=== PATIENT | female | born 1955 | race Caucasian/White ===

== ENCOUNTER 2018-11-26 12:45 | Emergency (ER) | payer MEDICAID ==
[~2018-11-26] VITALS: Ht 162.6 cm; Wt 80.5 kg
[2018-11-26 12:54] VITALS: Ht 162.6 cm; Wt 80.5 kg
[2018-11-26] MEDS ORDERED: MACROBID100 MG PO ×2 (12:57→16:28)
[2018-11-26] MEDS ORDERED: COUMADIN5 MG PO (12:58)
[2018-11-26] MEDS ORDERED: COUMADIN6 MG PO (12:58)
[2018-11-26 13:29] LABS: BASOPHILS 0.1 % (0-2); EOSINOPHILS 0.4 % (0-7); HEMATOCRIT 37.6 % (36.0-48.0); HEMOGLOBIN 13.4 g/dL (12-16); IMMATURE GRANULOCYTES 0.2 % (0-5); MCH 30.3 pg (26.0-34.0); MCHC 35.6 g/dL (31.0-37.0); MCV 85.1 fL (80.0-100.0); MEAN PLATELET VOLUME 9.8 fL (7.4-10.4); MONOCYTES 6.7 % (2-11); NEUTROPHILS 83.6 % (40-80); PLATELET COUNT 216 10x3/uL (130-400); RBC 4.42 10x6/uL (4.00-5.40); RDW 14.2 % (11.5-14.5); WBC 9.3 10x3/uL (4.8-10.8)
[2018-11-26 13:36] LABS: APPEARANCE CLEAR (CLEAR); BILIRUBIN NEGATIVE (NEGATIVE); COLOR YELLOW (YELLOW); GLUCOSE NEGATIVE (NEGATIVE); KETONE NEGATIVE (NEGATIVE); NITRITE NEGATIVE (NEGATIVE); PROTEIN NEGATIVE (NEGATIVE); SPECIFIC GRAVITY 1.005 (1.005-1.020); UROBILINOGEN NORMAL (NORMAL)
[2018-11-26 13:40] LABS: ALBUMIN 3.6 g/dL (3.4-5.0); ALKALINE PHOSPHATASE 124 U/L (46-116); ALT (SGPT) 19 U/L (10-68); BILIRUBIN - TOTAL 1.06 mg/dL (0.2-1.3); CALC OSMOLALITY 277 mosm/kg (275-300); CALCIUM 8.8 mg/dL (8.5-10.1); CARBON DIOXIDE 25.7 mmol/L (21.0-32.0); CHLORIDE - SERUM 103 mmol/L (98-107); CREATININE - SERUM 0.7 mg/dL (0.6-1.3); GLUCOSE 115 mg/dL (74-106); PROTEIN - SERUM 7.1 g/dL (6.4-8.2); SODIUM 139 mmol/L (136-145); UREA NITROGEN 10 mg/dL (7-18); eGFR NON AFRICAN AMERICAN 90 mL/min (90-120)
[2018-11-26 13:44] LABS: BACTERIA MODERATE /hpf (NONE SEEN); EPITHELIAL CELLS OCC /hpf (0-5); RED CELLS - URINE 0-5 /hpf (0-5); WHITE CELLS - URINE 0-5 /hpf (0-5)
[2018-11-26 13:45] LABS: GRANULAR CAST RARE /lpf (NONE SEEN); HYALINE CAST RARE /lpf (NONE SEEN)
[2018-11-26] MEDS ORDERED: KEFLEX500 MG PO (16:28)
[2018-11-26] MEDS ORDERED: CYCLOBENZAPRINE10 MG PO (16:28)
[2018-11-26] MEDS ORDERED: ACETAMINOPHEN500 M1 PO (16:28)
[2018-11-26] MEDS ORDERED: IBUPROFEN800 MG PO (16:28)
[2018-11-26 16:46] VITALS: BP 144/83
[2018-12-01 19:40] VITALS: Ht 162.6 cm; Wt 80.5 kg
== END 2018-11-26 16:47 | disposition home or self-care (01) ==
LOC: D.ER 12:45
PROVIDERS: Family Medicine
DX: R31.9 Hematuria, unspecified (principal); R82.71 Bacteriuria; N28.1 Cyst of kidney, acquired; N23 Unspecified renal colic

== ENCOUNTER 2018-11-28 12:23 | Inpatient (IN) | payer MEDICAID ==
[~2018-11-28] VITALS: Ht 162.6 cm; Wt 80.3 kg
[~2018-11-28 12:23] MED LIST: ACETAMINOPHEN500 M1 PO; COUMADIN5 MG PO; COUMADIN6 MG PO; CYCLOBENZAPRINE10 MG PO; IBUPROFEN800 MG PO; KEFLEX500 MG PO; MACROBID100 MG PO
[2018-11-28 14:26] LABS: APPEARANCE CLEAR (CLEAR); BACTERIA MODERATE /hpf (NONE SEEN); BILIRUBIN NEGATIVE (NEGATIVE); COLOR YELLOW (YELLOW); EPITHELIAL CELLS 0-5 /hpf (0-5); GLUCOSE NEGATIVE (NEGATIVE); KETONE NEGATIVE (NEGATIVE); MUCUS <1+ /lpf (NONE SEEN); NITRITE NEGATIVE (NEGATIVE); PROTEIN NEGATIVE (NEGATIVE); SPECIFIC GRAVITY 1.015 (1.005-1.020); UROBILINOGEN NORMAL (NORMAL); WHITE CELLS - URINE RARE /hpf (0-5)
[2018-11-28 16:59] LABS: BASOPHILS 0.1 % (0-2); EOSINOPHILS 0.7 % (0-7); HEMATOCRIT 33.1 % (36.0-48.0); HEMOGLOBIN 11.8 g/dL (12-16); IMMATURE GRANULOCYTES 0.4 % (0-5); LYMPHOCYTES 14.1 % (15-50); MCHC 35.6 g/dL (31.0-37.0); MCV 84.2 fL (80.0-100.0); MEAN PLATELET VOLUME 9.6 fL (7.4-10.4); MONOCYTES 3.6 % (2-11); NEUTROPHILS 81.1 % (40-80); PLATELET COUNT 178 10x3/uL (130-400); RBC 3.93 10x6/uL (4.00-5.40); RDW 14.4 % (11.5-14.5); WBC 8.4 10x3/uL (4.8-10.8)
[2018-11-28 17:15] LABS: ALKALINE PHOSPHATASE 117 U/L (46-116); ALT (SGPT) 37 U/L (10-68); BILIRUBIN - TOTAL 0.84 mg/dL (0.2-1.3); CALC OSMOLALITY 277 mosm/kg (275-300); CARBON DIOXIDE 28.7 mmol/L (21.0-32.0); CHLORIDE - SERUM 105 mmol/L (98-107); CREATININE - SERUM 0.6 mg/dL (0.6-1.3); GLUCOSE 95 mg/dL (74-106); POTASSIUM - SERUM 3.6 mmol/L (3.5-5.1); SODIUM 140 mmol/L (136-145); UREA NITROGEN 9 mg/dL (7-18); eGFR NON AFRICAN AMERICAN > 90 mL/min (90-120)
[2018-11-28 19:30] VITALS: BP 109/64
[2018-11-28 20:00] VITALS: BP 108/63
[2018-11-28 20:30] VITALS: BP 108/63
[2018-11-28 21:00] VITALS: BP 108/63
[2018-11-29 03:03] VITALS: BP 120/67
[2018-11-29 04:53] LABS: BASOPHILS 0.1 % (0-2); EOSINOPHILS 0.8 % (0-7); HEMATOCRIT 35.2 % (36.0-48.0); HEMOGLOBIN 12.3 g/dL (12-16); IMMATURE GRANULOCYTES 0.2 % (0-5); LYMPHOCYTES 12.2 % (15-50); MCH 29.8 pg (26.0-34.0); MCHC 34.9 g/dL (31.0-37.0); MCV 85.2 fL (80.0-100.0); MEAN PLATELET VOLUME 10.1 fL (7.4-10.4); MONOCYTES 5.8 % (2-11); NEUTROPHILS 80.9 % (40-80); RBC 4.13 10x6/uL (4.00-5.40); RDW 14.4 % (11.5-14.5); WBC 8.6 10x3/uL (4.8-10.8)
[2018-11-29 05:04] LABS: PLATELET COUNT 215 10x3/uL (130-400)
[2018-11-29 05:23] LABS: ALBUMIN 3.1 g/dL (3.4-5.0); ALKALINE PHOSPHATASE 149 U/L (46-116); BILIRUBIN - TOTAL 0.99 mg/dL (0.2-1.3); CALC OSMOLALITY 274 mosm/kg (275-300); CALCIUM 8.1 mg/dL (8.5-10.1); CARBON DIOXIDE 27.3 mmol/L (21.0-32.0); CHLORIDE - SERUM 103 mmol/L (98-107); CREATININE - SERUM 0.7 mg/dL (0.6-1.3); GLUCOSE 101 mg/dL (74-106); POTASSIUM - SERUM 3.7 mmol/L (3.5-5.1); PROTEIN - SERUM 6.4 g/dL (6.4-8.2); SODIUM 138 mmol/L (136-145); UREA NITROGEN 9 mg/dL (7-18); eGFR NON AFRICAN AMERICAN 90 mL/min (90-120)
[2018-11-29 05:24] LABS: ALT (SGPT) 60 U/L (10-68)
[2018-11-29 06:29] VITALS: BP 104/78
[2018-11-29 07:26] LABS: AMYLASE - SERUM 33 U/L (25-115); LIPASE 86 U/L (73-393)
[2018-11-29 07:39] LABS: % SATURATION 11 % (15-55); IRON 29 ug/dl (35-150); TOTAL IRON BIND CAPACITY 258 ug/dl (260-445); UNSAT IRON BIND CAPACITY 229 ug/dl (150-375)
[2018-11-29 07:48] LABS: INR 3.19 (0.85-1.17); PROTIME 31.9 SECONDS (11.6-15.0)
[2018-11-29 08:34] VITALS: BP 116/66
[2018-11-29 15:39] VITALS: BMI 30.4
[2018-11-29 20:14] VITALS: BP 132/72
[2018-11-30] VITALS: BP 138/66
[2018-11-30 04:00] VITALS: BP 143/70
[2018-11-30 07:20] LABS: BASOPHILS 0.2 % (0-2); EOSINOPHILS 1.4 % (0-7); HEMOGLOBIN 11.7 g/dL (12-16); IMMATURE GRANULOCYTES 0.3 % (0-5); LYMPHOCYTES 16.7 % (15-50); MCH 29.9 pg (26.0-34.0); MCHC 35.5 g/dL (31.0-37.0); MCV 84.4 fL (80.0-100.0); MEAN PLATELET VOLUME 9.9 fL (7.4-10.4); MONOCYTES 7.8 % (2-11); NEUTROPHILS 73.6 % (40-80); PLATELET COUNT 194 10x3/uL (130-400); RBC 3.91 10x6/uL (4.00-5.40)
[2018-11-30 07:23] LABS: WBC 6.3 10x3/uL (4.8-10.8)
[2018-11-30 07:47] LABS: ALBUMIN 2.9 g/dL (3.4-5.0); ALKALINE PHOSPHATASE 133 U/L (46-116); BILIRUBIN - TOTAL 0.84 mg/dL (0.2-1.3); CALC OSMOLALITY 275 mosm/kg (275-300); CALCIUM 8.2 mg/dL (8.5-10.1); CARBON DIOXIDE 26.8 mmol/L (21.0-32.0); CHLORIDE - SERUM 103 mmol/L (98-107); CREATININE - SERUM 0.7 mg/dL (0.6-1.3); GLUCOSE 93 mg/dL (74-106); POTASSIUM - SERUM 3.5 mmol/L (3.5-5.1); PROTEIN - SERUM 6.2 g/dL (6.4-8.2); SODIUM 139 mmol/L (136-145); UREA NITROGEN 7 mg/dL (7-18); eGFR NON AFRICAN AMERICAN 90 mL/min (90-120)
[2018-11-30 07:48] LABS: ALT (SGPT) 42 U/L (10-68)
[2018-11-30 09:03] VITALS: BMI 30.4
[2018-11-30 09:19] LABS: FOLATE (FOLIC ACID) - SERUM 9.3 ng/mL (>3.0)
[2018-11-30 11:05] VITALS: BP 120/75
[2018-11-30 14:11] VITALS: BP 133/67
[2018-11-30 17:20] VITALS: BP 119/68
[2018-11-30 20:00] VITALS: BP 136/66
[2018-12-01] VITALS: BP 115/61
[2018-12-01 04:00] VITALS: BP 127/63
[2018-12-01 06:35] LABS: BASOPHILS 0.2 % (0-2); EOSINOPHILS 1.7 % (0-7); HEMOGLOBIN 11.8 g/dL (12-16); IMMATURE GRANULOCYTES 0.3 % (0-5); LYMPHOCYTES 17.1 % (15-50); MCH 29.6 pg (26.0-34.0); MCHC 35.8 g/dL (31.0-37.0); MCV 82.7 fL (80.0-100.0); NEUTROPHILS 72.7 % (40-80); PLATELET COUNT 216 10x3/uL (130-400); RBC 3.99 10x6/uL (4.00-5.40); RDW 13.9 % (11.5-14.5); WBC 5.8 10x3/uL (4.8-10.8)
[2018-12-01 06:44] LABS: INR 3.33 (0.85-1.17)
[2018-12-01 06:56] LABS: ALBUMIN 2.9 g/dL (3.4-5.0); ALKALINE PHOSPHATASE 118 U/L (46-116); ALT (SGPT) 30 U/L (10-68); BILIRUBIN - TOTAL 0.62 mg/dL (0.2-1.3); CALC OSMOLALITY 276 mosm/kg (275-300); CALCIUM 8.2 mg/dL (8.5-10.1); CHLORIDE - SERUM 107 mmol/L (98-107); CREATININE - SERUM 0.6 mg/dL (0.6-1.3); GLUCOSE 101 mg/dL (74-106); POTASSIUM - SERUM 3.7 mmol/L (3.5-5.1); PROTEIN - SERUM 6.1 g/dL (6.4-8.2); SODIUM 140 mmol/L (136-145); UREA NITROGEN 6 mg/dL (7-18); eGFR NON AFRICAN AMERICAN > 90 mL/min (90-120)
[2018-12-01 08:23] VITALS: BP 140/75
--- NOTE | 2018-12-01 10:33 | MORECARE ---
CASE MANAGEMENT DISCHARGE SUMMARY PATIENT: MOMO CACERES UNIT: [id number] ADM DATE: 11/30/18 AGE: 63 : 59 SEX: F ROOM/BED: D.1208 AUTHOR: KEN GUPTA PHYSICIAN: REFERRING PHYSICIAN: RAINER SEGURA MD DATE OF SERVICE: 12/01/18 Discharge Plan Patient Name: MOMO CACERES Facility: [facility]:[place] : 1955 Planned Disposition: Home Anticipated Discharge Date: Discharge Date: Expected LOS: Initial Reviewer: [email or web address] Initial Review Date: 12/01/2018 Generated: 12/01/18 11:33 am Comments DCP- Discharge Planning Updated by [email or web address]: Sushma Laws on 12/01/18 9:[address] Patient Name: MOMO CACERES Admission Status: ER Accout number: [id number] Admission Date: 11-30-2018 : 1955 Admission Diagnosis: Attending: RAINER SEGURA Current LOS: 1 Anticipated DC Date: Planned Disposition: Home [place]: [place] [employer] [place] Discharge Planning Comments: CM MET WITH PATIENT ABOUT DC PLANNING/NEEDS. DENIES ANY NEEDS. WANTS TO GO HOME TODAY. STATES HER COUSIN WILL BE HERE AROUND 11 OR 12 AND CAN TAKE HER HOME. CM WILL FOLLOW AND ASSIST NEEDED WITH DC PLANNING/NEEDS. Lead Embedded Software Engineer: Sushma Laws DCPIA - Discharge Planning Initial Assessment Updated by [email or web address]: Sushma Laws on 12/01/18 10:24 am * Is the patient Alert and Oriented? Yes * PCP SUSHMA COLINDRES * [facility] * Preadmission Environment Home Alone * ADLs Independent * Community resources currently utilized None * Additional services required to return to the preadmission environment? No * Can the patient safely return to the preadmission environment? Yes * Has this patient been hospitalized within the prior 30 days at any hospital? No Patient Name: MOMO CACERES Page [id number] at 1033 All edits/amendments must be made on the electronic document DICTATION DATE: 12/01/18 1033 ROVER TENDER: SELENA 12/01/18 1033 RPT#: [id number] DC DATE: STATUS: ADM IN [facility] [address] [place] [address] END OF REPORT
[2018-12-01 13:08] VITALS: BP 146/77
[2018-12-01] MEDS ORDERED: FLAGYL500 MG PO (19:03)
[2018-12-01 19:40] VITALS: Ht 162.6 cm; Wt 80.3 kg
--- NOTE | 2018-12-02 08:48 | MORECARE ---
CASE MANAGEMENT DISCHARGE SUMMARY PATIENT: MOMO CACERES UNIT: [id number] ADM DATE: 11/30/18 AGE: 63 : 59 SEX: F ROOM/BED: D.1208 AUTHOR: KEN GUPTA PHYSICIAN: REFERRING PHYSICIAN: RAINER SEGURA MD DATE OF SERVICE: 12/02/18 Discharge Plan Patient Name: MOMO CACERES Facility: [facility]:[place] : 1955 Planned Disposition: Home Anticipated Discharge Date: Discharge Date: 12/01/2018 Expected LOS: Initial Reviewer: [email or web address] Initial Review Date: 12/01/2018 Generated: 12/02/18 9:48 am Comments DCP- Discharge Planning Updated by [email or web address]: Sushma Laws on 12/01/18 9:[address] Patient Name: MOMO CACERES Admission Status: ER Accout number: [id number] Admission Date: 11-30-2018 : 1955 Admission Diagnosis: Attending: RAINER SEGURA Current LOS: 1 Anticipated DC Date: Planned Disposition: Home [place] [employer] [place] Discharge Planning Comments: CM MET WITH PATIENT ABOUT DC PLANNING/NEEDS. DENIES ANY NEEDS. WANTS TO GO HOME TODAY. STATES HER COUSIN WILL BE HERE AROUND 11 OR 12 AND CAN TAKE HER HOME. CM WILL FOLLOW AND ASSIST NEEDED WITH DC PLANNING/NEEDS. Fiber Optic Central Office Installer: Sushma Laws DCPIA - Discharge Planning Initial Assessment Updated by [email or web address]: Sushma Laws on 12/01/18 10:24 am * Is the patient Alert and Oriented? Yes * PCP SUSHMA COLINDRES * [facility] * Preadmission Environment Home Alone * ADLs Independent * Community resources currently utilized None * Additional services required to return to the preadmission environment? No * Can the patient safely return to the preadmission environment? Yes * Has this patient been hospitalized within the prior 30 days at any hospital? No Last DP export: 12/01/18 9:33 a Patient Name: MOMO CACERES Page [phone] at 0848 All edits/amendments must be made on the electronic document DICTATION DATE: 12/02/1848 PROFESSOR OF MUSIC: SELENA 12/02/1848 RPT#: [id number] DC DATE:12/01/18 STATUS: DIS IN [facility] [address] [place] [address] END OF REPORT
== END 2018-12-01 20:37 | disposition home or self-care (01) | DRG 392 ==
LOC: D.ER 12:23 → D.EDHOLD 17:45 → OBSVTIME 17:46 → D.EDHOLD 11-29 09:45 → D.M3 11-29 12:33
PROVIDERS: Family Medicine; ADMIT Internal Medicine Nephrology
DX: K52.9 Noninfective gastroenteritis and colitis, unspecified (principal); K57.92 Diverticulitis of intestine, part unspecified, without perforation or abscess without bleeding; N39.0 Urinary tract infection, site not specified; D50.9 Iron deficiency anemia, unspecified; Z86.718 Personal history of other venous thrombosis and embolism; Z79.01 Long term (current) use of anticoagulants; R19.5 Other fecal abnormalities